=== PATIENT | female | born 1995 | race Two or more races ===

== ENCOUNTER 2019-08-07 04:05 | Inpatient (IN) | payer MEDICAID ==
[~2019-08-07] VITALS: Ht 157.5 cm; Wt 119.3 kg
[2019-08-07] VITALS (18 sets, daily range): BP systolic 96–133; BP diastolic 47–77
[~2019-08-07 04:05] MED LIST: PREN-129 OR
[2019-08-07] MEDS: LACTATED RINGER'S 1,000 ML IV SCH ×3 (05:49→17:44)
[2019-08-07 06:02] LABS: Basophils # (auto) 0 10 ^3/uL (0-0.2); Basophils % (auto) 0.1 % (0.0-2.0); Eosinophils # (auto) 0.1 10 ^3/uL (0-0.8); Eosinophils % (auto) 1.3 % (0.0-7.0); Hemoglobin 11.7 g/dL (12.2-16.2); Lymphocytes # (auto) 1.9 10 ^3/uL (0.4-5.4); Lymphocytes % (auto) 21.3 % (10.0-50.0); Mean Corpuscular Hemoglobin 29.9 pg (28.0-32.0); Mean Corpuscular Hgb Conc. 34.3 g/dL (32.0-36.0); Monocytes # (auto) 0.6 10 ^3/uL (0-1.3); Monocytes % (auto) 7.3 % (0.0-12.0); Neutrophils # (auto) 6.1 10 ^3/uL (1.6-8.6); Nucleated Red Blood Cells % 0.2 %; Platelet Count (auto) 145 10^3/uL (140-450); Red Cell Distribution Width 15.4 % (11.8-14.3); White Blood Cell 8.7 10^3/uL (4.4-10.8)
[2019-08-07 06:06] LABS: Urine Bacteria FEW /hpf (None Seen); Urine Blood Negative /uL (Negative); Urine Mucus FEW (None Seen); Urine Specific Gravity 1.027 (1.001-1.035); Urine WBC 6 /hpf (0 - 5)
[2019-08-07 06:12] LABS: INR 0.96 (0.9-1.15); Partial Thromboplastin Time 27.5 sec (23.64-32.05)
[2019-08-07 06:16] LABS: Albumin 2.5 g/dL (3.4-5.0); Potassium 3.5 mmol/L (3.5-5.1)
[2019-08-07 06:19] LABS: Alcohol, Urine < 3.0 mg/dL (0-5); Amphetamine Screen, Urine NEGATIVE (NEGATIVE); Barbiturate Scree,Urine NEGATIVE (NEGATIVE); Benzodiazephine Screen, Urine NEGATIVE (NEGATIVE); Cannabinoid Screen, Urine NEGATIVE (NEGATIVE); Cocaine Screen, Urine NEGATIVE (NEGATIVE); Opiate Scree,Urine NEGATIVE (NEGATIVE); Phencyclidine Screen, Urine NEGATIVE (NEGATIVE)
[2019-08-07 06:20] LABS: BUN/Creatinine Ratio 20.8; Bilirubin, Total 0.3 mg/dL (0.2-1.0); Total Protein 6.3 g/dL (6.4-8.2)
[2019-08-07] MEDS ORDERED: PHENYLEPHRINE HCL 10 MG/ML VL IV ONE (07:05)
[2019-08-07] MEDS ORDERED: fentaNYL CITRATE 100 MCG/2 ML VL ONE (07:22)
[2019-08-07] MEDS ORDERED: MORPHINE SULF(PF) 0.5MG/ML 10ML VIAL ONE (07:22)
[2019-08-07] MEDS ORDERED: MIDAZOLAM HCL 1MG/1ML-2 ML VIAL ONE (07:22)
[2019-08-07] MEDS ORDERED: TETRACAINE 1% INJ 2 ML VIAL IJ ONE (07:23)
[2019-08-07] MEDS ORDERED: LACT. RINGERS/OXYTOCIN 20UNITS 1,000 ML IV SCH (07:26)
[2019-08-07] MEDS ORDERED: ONDANSETRON HCL 4 MG/2 ML VIAL IV PRN ×2 (07:30→09:00)
[2019-08-07] MEDS ORDERED: ceFAZolin 1GM/50ML 50 ML IV SCH (07:30)
[2019-08-07] MEDS: CARBOPROST TROMETHAMINE 250 MCG/1ML VIAL IM ONE ×2 (08:08→08:30)
[2019-08-07] MEDS ORDERED: ONDANSETRON HCL 4 MG/2 ML VIAL ONE (08:12)
[2019-08-07] MEDS ORDERED: oxyTOCIN 10 UNIT/ML 10ML VIAL ONE (08:12)
[2019-08-07] MEDS ORDERED: ceFAZolin 1GM VL ONE (08:12)
[2019-08-07] MEDS ORDERED: MORPHINE SULFATE 4 MG/ML SYR/VIAL IV PRN (09:00)
[2019-08-07] MEDS ORDERED: HYDROmorphone HCL 2 MG/ML VL IV PRN ×2 (09:00)
[2019-08-07] MEDS ORDERED: MIDAZOLAM HCL 1MG/1ML-2 ML VIAL IV PRN (09:00)
[2019-08-07] MEDS ORDERED: ePHEDrine SULFATE 50 MG/ML AMP IV PRN (09:00)
[2019-08-07] MEDS ORDERED: DexAMETHasone SOD PHOS 10MG/1ML VIAL INJ IV PRN (09:00)
[2019-08-07] MEDS ORDERED: diphenhdrAMINE HCL 50 MG/1 ML VL IV PRN (09:00)
[2019-08-07] MEDS ORDERED: NALBUPHINE HCL 10 MG/1ml INJECTION SUBCUT ONE (09:00)
[2019-08-07] MEDS ORDERED: NALOXONE HCL 0.4 MG/ML VIAL IV PRN (09:00)
[2019-08-07] MEDS ORDERED: LABETALOL HCL 5 MG/ML 4ML SYRINGE IV PRN (09:00)
[2019-08-07] MEDS: MORPHINE SULFATE 4 MG/ML SYR/VIAL IV PRN ×2 (12:41→23:32)
[2019-08-07] MEDS: ceFAZolin 1GM/50ML 50 ML IV SCH ×2 (16:28→23:33)
[2019-08-07 19:54] LABS: Basophils # (auto) 0 10 ^3/uL (0-0.2); Basophils % (auto) 0.1 % (0.0-2.0); Eosinophils # (auto) 0 10 ^3/uL (0-0.8); Eosinophils % (auto) 0.2 % (0.0-7.0); Hematocrit 34.5 % (36.0-46.0); Hemoglobin 11.6 g/dL (12.2-16.2); Lymphocytes # (auto) 0.7 10 ^3/uL (0.4-5.4); Lymphocytes % (auto) 5.8 % (10.0-50.0); Mean Corpuscular Hemoglobin 29.2 pg (28.0-32.0); Mean Corpuscular Hgb Conc. 33.7 g/dL (32.0-36.0); Mean Corpuscular Volume 86.6 fL (80.0-100.0); Monocytes # (auto) 0.5 10 ^3/uL (0-1.3); Neutrophils # (auto) 10.8 10 ^3/uL (1.6-8.6); Neutrophils % (auto) 89.9 % (37.0-80.0); Platelet Count (auto) 143 10^3/uL (140-450); Red Blood Cells 3.98 10^6/uL (4.0-5.20); Red Cell Distribution Width 15.7 % (11.8-14.3)
[2019-08-08] VITALS (7 sets, daily range): BP systolic 103–131; BP diastolic 58–69
[2019-08-08] MEDS ORDERED: ACETAMINOPHEN IV 1000 MG/100ML (10MG/ML) IV PRN (01:00)
[2019-08-08] MEDS: MORPHINE SULFATE 4 MG/ML SYR/VIAL IV PRN ×2 (03:19→07:24)
[2019-08-08 04:10] LABS: RPR Non Reactive (Non Reactive)
[2019-08-08 06:37] LABS: Hematocrit 31.5 % (36.0-46.0); Hemoglobin 10.7 g/dL (12.2-16.2); Mean Corpuscular Hemoglobin 29.6 pg (28.0-32.0); Mean Corpuscular Hgb Conc. 34.1 g/dL (32.0-36.0); Mean Corpuscular Volume 86.8 fL (80.0-100.0); Platelet Count (auto) 132 10^3/uL (140-450); Red Blood Cells 3.63 10^6/uL (4.0-5.20); Red Cell Distribution Width 15.6 % (11.8-14.3); White Blood Cell 8.9 10^3/uL (4.4-10.8)
[2019-08-08 06:39] LABS: Basophils % (manual) 0 (0.0-2.0); Blast Cells 0; Eosinophils % (manual) 0 (0-7); Metamyelocytes % 0; Myelocytes % 0; Promyelocytes % 0; Reactive Lymphocytes 0
[2019-08-08 07:18] LABS: Band Neutrophils % (manual) 3; Lymphocytes % (manual) 5 (10.0-50.0); Monocytes % (manual) 3 (0-12)
[2019-08-08] MEDS: ceFAZolin 1GM/50ML 50 ML IV SCH (07:33)
[2019-08-08] MEDS: LACTATED RINGER'S 1,000 ML IV SCH (07:37)
[2019-08-08] MEDS ORDERED: LACTATED RINGER'S 1,000 ML IV SCH (07:59)
[2019-08-08] MEDS ORDERED: HYDROcodone-ACET 5/325MG TAB PO PRN (08:00)
[2019-08-08] MEDS ORDERED: BISACODYL 10 MG RECT SUPP PR PRN (08:00)
[2019-08-08] MEDS: IBUPROFEN 800 MG TAB PO PRN ×2 (08:14→17:10)
[2019-08-08] MEDS ORDERED: SIMETHICONE 80 MG CHEWABLE TABLET PO ONE (08:15)
[2019-08-08] MEDS: DOCUSATE CALCIUM 240 MG CAP PO SCH (09:36)
[2019-08-08] MEDS: DOCUSATE SOD 100 MG CAP PO SCH ×2 (09:36→22:15)
[2019-08-08] MEDS: HYDROcodone-ACET 5/325MG TAB PO PRN ×4 (09:38→23:03)
[2019-08-08] MEDS: PIPERACILLIN-TAZOB 3.375GM 100 ML IV SCH ×2 (11:31→18:37)
[2019-08-08] MEDS: SIMETHICONE 80 MG CHEWABLE TABLET PO SCH ×3 (11:31→22:15)
[2019-08-09] VITALS (7 sets, daily range): BP systolic 110–130; BP diastolic 64–75
[2019-08-09] MEDS: PIPERACILLIN-TAZOB 3.375GM 100 ML IV SCH ×2 (00:14→05:46)
[2019-08-09] MEDS: IBUPROFEN 800 MG TAB PO PRN ×2 (04:27→15:05)
[2019-08-09] MEDS: SIMETHICONE 80 MG CHEWABLE TABLET PO SCH ×4 (05:55→22:05)
[2019-08-09] MEDS: DOCUSATE CALCIUM 240 MG CAP PO SCH (10:13)
[2019-08-09] MEDS: DOCUSATE SOD 100 MG CAP PO SCH ×2 (10:13→22:05)
[2019-08-09] MEDS: HYDROcodone-ACET 5/325MG TAB PO PRN ×2 (10:17→17:56)
[2019-08-09] MEDS: CEPHALEXIN 250 MG CAP PO SCH ×2 (12:11→17:55)
[2019-08-10] MEDS: CEPHALEXIN 250 MG CAP PO SCH ×2 (00:30→05:55)
[2019-08-10 03:00] VITALS: BP 112/73
[2019-08-10] MEDS: SIMETHICONE 80 MG CHEWABLE TABLET PO SCH (05:57)
[2019-08-10] MEDS: IBUPROFEN 800 MG TAB PO PRN (05:57)
[2019-08-10 07:00] VITALS: BP 100/65
[2019-08-10] MEDS ORDERED: TETANUS-DIPTH-ACEL PERTUSSIS 0.5ML SYR Tdap IM ONE (08:15)
[2019-08-10] MEDS: DOCUSATE SOD 100 MG CAP PO SCH (09:47)
[2019-08-10] MEDS: DOCUSATE CALCIUM 240 MG CAP PO SCH (09:47)
== END 2019-08-10 10:59 | disposition home or self-care (01) | DRG 540 ==
LOC: LDRP 04:05
PROVIDERS: ADMIT Specialist; ATTEND Specialist
PROC: 0UL70CZ Occlusion of Bilateral Fallopian Tubes with Extraluminal Device, Open Approach (ICD-10-PCS; 2019-08-07)
PROC: 10D00Z1 Extraction of Products of Conception, Low, Open Approach (ICD-10-PCS; principal; 2019-08-07 07:15)
DX: O99.214 Obesity complicating childbirth (principal); E66.01 Morbid (severe) obesity due to excess calories; O34.211 Maternal care for low transverse scar from previous cesarean delivery; Z37.0 Single live birth; Z30.2 Encounter for sterilization; Z3A.39 39 weeks gestation of pregnancy; Z11.59 Encounter for screening for other viral diseases
CPT/HCPCS: 36415; 51702; 59025; 80053; 80307; 81001; 84112; 85007; 85025; 85027; 85610; 85730; 86592; 86850; 86900; 86901; 94760; 94762; 96366; G0378; J0131; J0690; J2250; J2405; J2543; J2590

== ENCOUNTER → 2020-01-08 | Emergency (ER) | payer MEDICAID ==
[~2020-01-08] VITALS: Ht 157.5 cm; Wt 115.7 kg
[2020-01-08 23:00] VITALS: BP 130/95
== END | disposition home or self-care (01) ==
LOC: ER 21:53
DX: H66.93 Otitis media, unspecified, bilateral (principal); Z87.440 Personal history of urinary (tract) infections; Z79.899 Other long term (current) drug therapy

== ENCOUNTER 2022-09-09 02:04 | Emergency (ER) | payer MEDICAID ==
[~2022-09-09] VITALS: Ht 157.5 cm; Wt 117.6 kg
[2022-09-09] MEDS ORDERED: ACETAMINOPHEN 325 MG TAB PO ONE (02:30)
[2022-09-09 02:44] LABS: Basophils # (auto) 0 10 ^3/uL (0-0.2); Basophils % (auto) 0.5 % (0.0-2.0); Eosinophils # (auto) 0 10 ^3/uL (0-0.8); Eosinophils % (auto) 0.2 % (0.0-7.0); Hematocrit 31.4 % (36.0-46.0); Hemoglobin 10.4 g/dL (12.2-16.2); Lymphocytes % (auto) 24.9 % (10.0-50.0); Mean Corpuscular Hemoglobin 24.5 pg (28.0-32.0); Mean Corpuscular Hgb Conc. 33.1 g/dL (32.0-36.0); Mean Corpuscular Volume 73.9 fL (80.0-100.0); Monocytes # (auto) 0.3 10 ^3/uL (0-1.3); Monocytes % (auto) 6.3 % (0.0-12.0); Neutrophils # (auto) 2.8 10 ^3/uL (1.6-8.6); Neutrophils % (auto) 68.1 % (37.0-80.0); Nucleated Red Blood Cells % 0.1 %; Red Blood Cells 4.25 10^6/uL (4.0-5.20); White Blood Cell 4.2 10^3/uL (4.4-10.8)
[2022-09-09 03:11] LABS: Albumin 3.3 g/dL (3.4-5.0); Calcium 7.6 mg/dL (8.5-10.1); Potassium 3.8 mmol/L (3.5-5.1)
[2022-09-09 03:14] LABS: BUN/Creatinine Ratio 19.5 (10.0-20.0); Bilirubin, Total 0.3 mg/dL (0.2-1.0); Total Protein 6.4 g/dL (6.4-8.2)
[2022-09-09 03:47] LABS: Urine Bacteria FEW /hpf (None Seen); Urine Blood 3+ /uL (Negative); Urine Mucus FEW (None Seen); Urine Specific Gravity 1.025 (1.001-1.035); Urine WBC 3 /hpf (0 - 5)
[2022-09-09 06:36] VITALS: BP 106/56
[2022-09-09] MEDS ORDERED: LIDOCAINE 1% HCL (LOCAL ANESTH.) INJ 20ML MDV IJ ONE (06:45)
[2022-09-09] MEDS ORDERED: cefTRIAXone SOD 1,000 MG VL IM ONE ×2 (06:45)
[2022-09-09] MEDS ORDERED: AZIT500T66 PO (07:16)
[2022-09-09] MEDS ORDERED: IBUP800T27 PO (07:16)
== END 2022-09-09 07:22 | disposition home or self-care (01) ==
LOC: ER 02:04
DX: J03.90 Acute tonsillitis, unspecified (principal); H66.91 Otitis media, unspecified, right ear; R07.89 Other chest pain; Z20.822 Contact with and (suspected) exposure to COVID-19; Z87.440 Personal history of urinary (tract) infections; Z98.890 Other specified postprocedural states
CPT/HCPCS: 36415; 71045; 80053; 81001; 84484; 85025; 87426; 87804; 93005; 96372; 99285; J0696

== ENCOUNTER 2024-09-30 09:54 | Outpatient (CLI) | payer MEDICAID ==
[~2024-09-30 09:54] MED LIST changes: +AZIT500T66 PO; +IBUP-1456 PO
[2024-10-02 03:07] LABS: Chlamydia Trachomatis, NAA Negative (Negative); Neisseria gonorrhoeae, NAA Negative (Negative)
== END 2024-09-30 17:00 | disposition home or self-care (01) ==
LOC: LAB 09:54
DX: Z11.2 Encounter for screening for other bacterial diseases (principal); Z11.3 Encounter for screening for infections with a predominantly sexual mode of transmission
CPT/HCPCS: 36415; 86703; 86780; 87340; 87902